=== PATIENT | female | born 1995 | race Hispanic/Latino ===

== ENCOUNTER 2018-08-07 15:22 | Emergency (ER) | payer SELFPAY ==
[2018-08-07 16:22] LABS: #Basophils 0.1 thou/uL (0.0-0.2); #Eosinphils 0.3 thou/uL (0.0-0.7); #Lymphocytes 3.9 thou/uL (1.20-3.40); #Monocytes 0.7 thou/uL (0.11-0.59); #Neutrophils 6.2 thou/uL (1.40-6.50); %Basophils 0.8 % (0.0-1.0); %Eosinophils 2.3 % (0.0-10.0); %Lymphocytes 34.8 % (21.0-51.0); %Monocytes 6.1 % (0.0-10.0); %Neutrophils 56.1 % (42.0-75.0); Hemoglobin 12.6 g/dL (12.0-16.0); Mean Corpuscular Hemoglobin 24.8 pg (27.0-31.0); Mean Corpuscular Volume 77.5 fL (78.0-98.0); Mean Platelet Volume 7.5 fL (7.4-10.4); Platelet Count 364 thou/uL (130-400); RBC Distribution Width 14.9 % (11.5-14.5); Red Blood Cell (RBC) Count 5.07 mill/uL (4.20-5.40); White Blood Cell (WBC) Count 11.1 thou/uL (4.8-10.8)
[2018-08-07 16:28] LABS: BHCG - Serum Negative (NEGATIVE); Pregs Control Background? CLEAR/WHITE (CLR/WHITE); Pregs Control Bar Appear? YES (CONTROL BAR)
[2018-08-07 17:09] LABS: ALT (SGPT) 19 U/L (8-55); AST (SGOT) 18 U/L (5-34); Albumin 4.5 g/dL (3.5-5.0); Alkaline Phosphatase 88 U/L (40-150); Anion Gap 12 mmol/L (10-20); BUN (Urea Nitrogen) 15 mg/dL (7.0-18.7); Bilirubin, Total 0.8 mg/dL (0.2-1.2); Calc. Creatinine Clearance 0 mL/min (70-130); Calcium 9.4 mg/dL (7.8-10.44); Carbon Dioxide 27 mmol/L (22-29); Chloride 105 mmol/L (98-107); Estimated GFR-MDRD 86; Globulin 3.7 g/dL (2.4-3.5); Glucose 94 mg/dL (70-105); Lipase 48 U/L (8-78); Potassium 3.7 mmol/L (3.5-5.1); Protein, Total 8.2 g/dL (6.0-8.3); Sodium 140 mmol/L (136-145)
--- NOTE | 2018-08-07 17:52 | ULT ---
ULTRASOUND ABDOMEN LIMITED: (RIGHT UPPER QUADRANT) DATE: 08/07/2018 FINDINGS: Gallbladder:Contracted because patient is recently postprandial. Difficult to evaluate. Common duct:3 mm. Liver:Diffusely increased echogenicity consistent with fatty liver. Pancreas:Completely obscured by shadowing from bowel gas. Right kidney:No hydronephrosis IMPRESSION: 1) contracted gallbladder because patient is postprandial. Difficult to evaluate. 2) hepatic steatosis
[2018-08-07 20:29] LABS: Bilirubin Negative (Negative); Blood, Urine Negative (Negative); Clarity CLEAR (Clear); Glucose, Urine (Dipstick) Negative (Negative); Leukocyte Negative (Negative); Nitrite Negative (Negative); Protein, Urine (Dipstick) Negative (Neg-Trace); Specific Gravity, Urine 1.019 (1.002-1.036)
[2018-08-07] MEDS ORDERED: Ketorolac Tromethamine 30 MG/ML VIAL ONE (20:42)
== END 2018-08-07 21:22 | disposition home or self-care (01) ==
LOC: ERS 15:22
DX: R10.11 Right upper quadrant pain (principal)
CPT/HCPCS: 36415; 51701; 76705; 80053; 81003; 83690; 84703; 85025; 96372; A4353; J1885

== ENCOUNTER 2019-04-11 18:49 | Emergency (ER) | payer SELFPAY ==
[2019-04-11] MEDS ORDERED: Ondansetron ODT 4 MG TAB ONE (20:40)
[2019-04-11] MEDS ORDERED: Ibuprofen 200 MG TAB ONE (20:40)
== END 2019-04-11 21:10 | disposition home or self-care (01) ==
LOC: ERS 18:49
DX: J11.1 Influenza due to unidentified influenza virus with other respiratory manifestations (principal); E03.9 Hypothyroidism, unspecified; Z79.899 Other long term (current) drug therapy
CPT/HCPCS: 87804; 99283; Q0162

== ENCOUNTER 2019-05-17 13:19 | Emergency (ER) | payer SELFPAY ==
--- NOTE | 2019-05-17 14:47 | RAD ---
SINGLE VIEW CHEST: Date: 05/17/2019 COMPARISON: 02/01/07. HISTORY: TB screening. FINDINGS: Single view of the chest shows a normal sized cardiomediastinal silhouette. There is no evidence of c onsolidation, mass, or pleural effusion. The bones are unremarkable. IMPRESSION: No evidence of acute cardiopulmonary disease. POS: [facility]
[2019-05-17 15:37] LABS: HIV (1/2) Antibody/Antigen Non-Reactive (NonReactive); HIV 1/2 INDEX 0.13 S/CO (<1.00)
== END 2019-05-17 16:12 | disposition home or self-care (01) ==
LOC: ERS 13:19
DX: Z11.1 Encounter for screening for respiratory tuberculosis (principal); E03.9 Hypothyroidism, unspecified; F17.210 Nicotine dependence, cigarettes, uncomplicated; Z79.899 Other long term (current) drug therapy
CPT/HCPCS: 36415; 71045; 87389

== ENCOUNTER 2020-01-31 20:35 | Emergency (ER) | payer SELFPAY ==
[2020-01-31 21:07] LABS: Bacteria/HPF None Seen HPF (None Seen); Bilirubin Negative (Negative); Blood, Urine Negative (Negative); Clarity Clear (Clear); Glucose, Urine (Dipstick) Normal (Negative); Ketone, Urine Negative (Negative); Leukocyte Negative Leu/uL (Negative); Nitrite Negative (Negative); Protein, Urine (Dipstick) 30 mg/dL (Neg-Trace); RBC/HPF 0-3 HPF (0-3); Specific Gravity, Urine 1.041 (1.002-1.036); WBC/HPF 0-3 HPF (0-3)
[2020-02-01 00:46] LABS: Pregnancy Test - Urine (BHCG) Negative (Negative); Pregu Control Background? CLEAR/WHITE (CLR/WHITE); Pregu Control Bar Appear? YES (CONTROL BAR); Specific Gravity 1.041 (1.002-1.036)
[2020-02-01] MEDS ORDERED: Ketorolac Tromethamine 30 MG/ML VIAL ONE (01:34)
[2020-02-02 21:00] LABS: Chlamydia by PCR DETECTED (NotDetected); GC by PCR Not Detected (NotDetected)
== END 2020-02-01 02:25 | disposition home or self-care (01) ==
LOC: ERS 20:35
DX: R10.32 Left lower quadrant pain (principal); E03.9 Hypothyroidism, unspecified; F17.210 Nicotine dependence, cigarettes, uncomplicated; Z79.899 Other long term (current) drug therapy
CPT/HCPCS: 81003; 81015; 81025; 87480; 87491; 87510; 87591; 87660; 96372; 99284; J1885

== ENCOUNTER 2020-03-10 03:43 | Emergency (ER) | payer SELFPAY ==
--- NOTE | 2020-03-10 08:04 | RAD ---
RADIOGRAPH CHEST 1 VIEW: DATE: 03/10/2020 HISTORY: 24-year-old female with cough FINDINGS: There are no airspace densities, pulmonary edema, pneumothorax, or cardiomegaly. The lateral costophr enic angles are sharp. IMPRESSION: No acute cardiopulmonary findings.
== END 2020-03-10 04:41 | disposition home or self-care (01) ==
LOC: ERS 03:43
DX: J06.9 Acute upper respiratory infection, unspecified (principal); F17.210 Nicotine dependence, cigarettes, uncomplicated
CPT/HCPCS: 71045

== ENCOUNTER 2020-03-19 15:50 | Outpatient (CLI) | payer MEDICAID ==
--- NOTE | 2020-03-19 18:41 | ULT ---
PELVIC ULTRASOUND: 03/19/20 HISTORY: Pelvic pain. Real time imaging of the pelvis was obtained transabdominally as well as with an endovaginal probe. T he uterus measures 3 x 4.9 x 7.5 cm with endometrium in the 5 mm range. The right and left ovaries appear normal. No cysts are identified. Color Doppler evaluation with spectral analysis: Normal flow shown to both ovaries. IMPRESSION: Unremarkable pelvic ultrasound. POS: [facility]
== END 2020-03-19 15:51 | disposition home or self-care (01) ==
LOC: BICULT 15:50
PROVIDERS: ATTEND Nurse Practitioner Women's Health
DX: R10.2 Pelvic and perineal pain (principal)
CPT/HCPCS: 76856

== ENCOUNTER 2020-06-04 21:46 | Emergency (ER) | payer SELFPAY | END 2020-06-04 23:29 | disposition home or self-care (01) | LOC: ERS 21:46 | DX: R00.2 Palpitations (principal); F17.210 Nicotine dependence, cigarettes, uncomplicated | CPT/HCPCS: 36416; 93005 ==

== ENCOUNTER 2022-10-20 02:08 | Emergency (ER) | payer SELFPAY ==
[2022-10-20 02:41] LABS: Bilirubin Negative (Negative); Blood, Urine Large (Negative); Glucose, Urine (Dipstick) Negative (Negative); Ketone, Urine Negative (Negative); Leukocyte Negative (Negative); Nitrite Negative (Negative); Protein, Urine (Dipstick) 30 mg/dL (Neg-Trace); Urobilinogen 0.2 mg/dL (Less than 2); pH, Urine 5.5 (5.0-9.0)
[2022-10-20 02:42] LABS: Clarity Clear (Clear)
[2022-10-20 02:43] LABS: RBC/HPF 0-3 HPF (0-3)
[2022-10-20 02:44] LABS: Pregnancy Test - Urine (BHCG) Negative (Negative); Pregu Control Background? CLEAR/WHITE (CLR/WHITE); Pregu Control Bar Appear? YES (CONTROL BAR)
[2022-10-20 02:45] LABS: Specific Gravity 1.032 (1.002-1.036)
[2022-10-20 03:30] LABS: Bacteria/HPF 2+ HPF (None Seen); CAUTI Indications for Culture Pelvic or flank pain; Squamous Epithelial 0-3 HPF (0-3); Urine Culture Reflex No No; WBC/HPF 0-3 HPF (0-3)
[2022-10-20 03:37] LABS: Specific Gravity, Urine 1.032 (1.002-1.036)
== END 2022-10-20 04:15 | disposition home or self-care (01) ==
LOC: ERS 02:08
DX: R30.0 Dysuria (principal); Z87.891 Personal history of nicotine dependence
CPT/HCPCS: 81001; 81025; 99283